=== PATIENT | female | born 1995 | race Two or more races ===

== ENCOUNTER 2020-03-07 07:59 | Inpatient (IN) | payer MEDICAID ==
[~2020-03-07 07:59] MED LIST: Lidocaine 1.5% with EPINEPHrine 1:200,000 5 ML Amp ONE
[2020-03-07] MEDS ORDERED: Nalbuphine 10 MG/ML Syringe IVPUSH PRN (09:26)
[2020-03-07] MEDS ORDERED: Sodium Chloride 0.9% 10 ML Syringe FLUSH PRN (09:26)
[2020-03-07] MEDS ORDERED: Oxytocin/Lactated Ringers 10 UNIT/1,000 ML BAG IV SCH (09:30)
[2020-03-07] MEDS: Lactated Ringers 1,000 ML IV SCH ×3 (12:08→14:54)
[2020-03-07] MEDS ORDERED: fentaNYL 100 MCG/2 ML SDV EPIDUR PRN (12:37)
[2020-03-07] MEDS ORDERED: diphenhydrAMINE 50 MG/ML SDV IVPUSH PRN (12:37)
[2020-03-07] MEDS ORDERED: Bupivacaine/fentaNYL/NS 100 ML Bag EPIDUR PRN (12:37)
[2020-03-07] MEDS ORDERED: ePHEDrine 50 MG/ML SDV IVPUSH PRN (12:37)
--- NOTE | 2020-03-07 12:41 | PCM.LDHP ---
L&D History of Present Illness - General Date of Service: 03/07/20 Admit Problem/Dx: Patient Status Order with Admit Dx/Problem 03/07/20 08:07 Patient Status [ADT] Routine 03/07/20 09:00 Patient Status [ADT] Routine Admission Diagnosis/Problem Admission Diagnosis/Problem Source of Information: Patient History Limitations: Reports: No Limitations - History of Present Illness Introduction:: 24 yo at 37 weeks gestation with EDC 03/28/20 presented in spontaneous labor. She started having contractions about midnight and they have continued and are getting stronger. Membranes intact. Contractions have been about every 5 minutes. On admission, cervix 2-3 cm dilated, 90% effaced and station -2. When I saw her in the clinic yesterday, her cervix was 1 cm, 80% effaced and vertex. Her GBS test is negative. Blood type 0 neg and antibody screen negative. She did receive Rhogam at 28 weeks. Her infectious disease screening has all been negative. 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 She did have a varicella exposure during her and she does not have good varicella antibodies so we did give her IVIG infusion in November 2019 and she never did have any symptoms of chicken pox. Her 1 hour glucola was elevated at 140 but 3 hour GTT was wnl. She plans to breastfeed with her baby. 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: Social & Family History - Family History Family Medical History: Noncontributory - Tobacco Use Smoking Status *Q: Never Smoker Second Hand Smoke Exposure: No - Caffeine Use Caffeine Use: Reports: None - Recreational Drug Use Recreational Drug Use: No - Living Situation & Occupation Living situation: Reports: Single, with Significant Other H&P Review of Systems - Review of Systems: Review Of Systems: See Below General: Reports: No Symptoms HEENT: Reports: No Symptoms Pulmonary: Reports: No Symptoms Cardiovascular: Reports: No Symptoms Gastrointestinal: Reports: No Symptoms Genitourinary: Reports: No Symptoms Musculoskeletal: Reports: No Symptoms Skin: Reports: No Symptoms Psychiatric: Reports: No Symptoms Neurological: Reports: No Symptoms Hematologic/Lymphatic: Reports: No Symptoms Immunologic: Reports: No Symptoms L&D Exam - Exam Exam: See Below - Vital Signs Vital Signs: Last Vital Signs Temp 37.1 C 03/07/20 08:07 Pulse 81 03/07/20 08:07 Resp 16 03/07/20 08:07 BP 127/67 03/07/20 08:07 Pulse Ox 100 03/07/20 08:07 Weight: 86.273 kg - OB Specific Contraction Duration (sec): 60 Contraction Frequency (min): 3 to 6 Contraction Intensity: Moderate to Strong Movement: Active Heart Tones: Present Heart Tones per Min: 125 Heart Rate (FHR) Variability: Moderate (6-25 bmp) Presentation: Vertex Estimated Weight: 6 lb - Nance Score Nance Score Cervix Position: Midposition Nance Score Consistency: Soft Nance Score Effacement: >80% Nance Score Dilation: > 5 cm Nance Score 's Station: -1 ,0 Nance Score Total: 11 - Exam General: Alert, Oriented HEENT: Conjunctiva Clear, Mucosa Moist & [place], Pupils Equal Neck: Supple, Trachea Midline Lungs: Normal Respiratory Effort Cardiovascular: Regular Rate, Regular Rhythm GI/Abdominal Exam: Soft Rectal Exam: Deferred Genitourinary: Normal external exam Back Exam: Normal Inspection, Full Range of Motion Extremities: Normal Inspection, Non-Tender, No Pedal Edema Skin: Warm, Dry, Intact Neurological: Cranial Nerves Intact Psychiatric: Alert, Normal Affect, Normal Mood - Patient Data Lab Results Last 24 hrs: Laboratory Results - last 24 hr 03/07/20 03/07/20 03/07/20 Range/Units 09:40 09:40 09:45 WBC 15.28 H (3.98-10.04) K/mm3 RBC 4.32 (3.98-5.22) M/mm3 Hgb 12.4 (11.2-15.7) gm/dl Hct 37.3 (34.1-44.9) % MCV 86.3 D (79.4-94.8) fl MCH 28.7 (25.6-32.2) pg MCHC 33.2 (32.2-35.5) g/dl RDW Std Deviation 40.5 (36.4-46.3) fL Plt Count 256 (182-369) K/mm3 MPV 10.9 (9.4-12.3) fl Neut % (Auto) 81.4 H (34.0-71.1) % Lymph % (Auto) 10.6 L (19.3-51.7) % [place] % (Auto) 6.0 (4.7-12.5) % Eos % (Auto) 0.8 (0.7-5.8) Baso % (Auto) 0.3 (0.1-1.2) % Neut # (Auto) 12.44 H (1.56-6.13) K/mm3 Lymph # (Auto) 1.62 (1.18-3.74) K/mm3 [place] # (Auto) 0.92 H (0.24-0.36) K/mm3 Eos # (Auto) 0.12 (0.04-0.36) K/mm3 Baso # (Auto) 0.04 (0.01-0.08) K/mm3 COVID-19 (MELISSA) Negative (NEGATIVE) Blood Type O NEGATIVE Gel Antibody Screen Positive Result Diagrams: 03/07/20 09:40 - Problem List (1) 37 weeks gestation of SNOMED Code(s): 30851215 ICD Code: Z3A.37 - 37 WEEKS GESTATION OF Status: Acute Current Visit: Yes (2) Rh negative status during in third trimester SNOMED Code(s): 633076576 ICD Code: O26.893 - OTH RELATED CONDITIONS, THIRD TRIMESTER; Z67.91 - UNSPECIFIED BLOOD TYPE, RH NEGATIVE Status: Acute Current Visit: Yes (3) Spontaneous onset of labor SNOMED Code(s): 37647838 ICD Code: TGW2133 - Status: Acute Current Visit: Yes Problem List Initiated/Reviewed/Updated: Yes Orders Last 24hrs: Active Orders 24 hr Category Date Time Status Patient Status [ADT] Routine ADT 03/07/20 09:00 Active Activity as Tolerated [RC] PFP Care 03/07/20 09:26 Active Communication Order [RC] ASDIRECTED Care 03/07/20 09:26 Active Heart Tones [RC] ASDIRECTED Care 03/07/20 09:27 Active Non Stress Test [RC] PER UNIT ROUTINE Care 03/07/20 08:07 Active Notify Provider [RC] PFP Care 03/07/20 09:26 Active Notify Provider [RC] PRN Care 03/07/20 09:26 Active Peripheral IV Care [RC] . DIRECTED Care 03/07/20 09:27 Active Vital Signs [RC] PER UNIT ROUTINE Care 03/07/20 08:07 Active Regular Diet [DIET] Diet 03/07/20 Lunch Active ANTIBODY IDENTIFICATION [BBK] Stat Lab 03/07/20 09:40 Results RAPID PLASMA REAGIN,RPR [CHEM] Routine Lab 03/07/20 09:40 Received TYPE AND SCREEN [BBK] Stat Lab 03/07/20 09:40 Results Lactated Ringers [Ringers, Lactated] 1,000 ml Med 03/07/20 09:30 Active IV ASDIRECTED Nalbuphine [Nubain] Med 03/07/20 09:26 Active 10 mg IVPUSH Q2H PRN Oxytocin/Lactated Ringers [Pitocin in LR 10 Units/1,000 Med 03/07/20 09:30 Active ML] 10 unit in 1,000 ml IV .CONTINUOUS Sodium Chloride 0.9% [Saline Flush] Med 03/07/20 09:26 Active 10 ml FLUSH ASDIRECTED PRN Electronic Heart Tones Ext w TOCO [WOMSER] Oth 03/07/20 09:26 Ordered Routine Electronic Heart Tones Internal [WOMSER] Per Unit Oth 03/07/20 09:26 Ordered Routine Peripheral IV Insertion Adult [OM.PC] Routine Oth 03/07/20 09:26 Ordered Resuscitation Status Routine Resus Stat 03/07/20 08:07 Ordered Medication Orders Lactated Ringer's (Ringers, Lactated) 1,000 mls @ 100 mls/hr IV ASDIRECTED ELLIOT Last Admin: 03/07/20 12:08 Dose: 100 mls/hr Documented by: CHASIDY Oxytocin/Lactated Ringer's (Pitocin In Lr 10 Units/1,000 Ml) 10 unit in 1,000 mls @ 500 mls/hr IV .CONTINUOUS ELLIOT Nalbuphine HCl (Nubain) 10 mg IVPUSH Q2H PRN PRN Reason: Pain Sodium Chloride (Saline Flush) 10 ml FLUSH ASDIRECTED PRN PRN Reason: Keep Vein Open Assessment/Plan Comment:: 24 year old at 37 weeks gestation today with spontaneous onset of labor about midnight today. She was 2-3 cm dilated at 0900 and now at 1230, cervix is 5 cm dilated with bulging membranes, 90% effaced. She is requesting epidural. monitor is Category I. A: Primip at 37 weeks getting into active labor. GBS negative. Blood type O negative. P: continue expectant management, anticipate vaginal delivery. Epidural now. Patient plans to breastfeed.n
--- NOTE | 2020-03-07 12:48 | PCM.PREANE ---
Preanesthetic Assessment - Procedure Proposed Procedure: Continuous labor epidural - Anesthesia/Transfusion/Family Hx Anesthesia History: No Prior Anesthesia Transfusion History: No Prior Transfusion(s) - Review of Systems General: No Symptoms Pulmonary: No Symptoms Cardiovascular: No Symptoms Gastrointestinal: No Symptoms Neurological: No Symptoms Other: Reports: None - Physical Assessment Vital Signs: Last Vital Signs Temp 98.7 F 03/07/20 08:07 Pulse 81 03/07/20 08:07 Resp 16 03/07/20 08:07 BP 127/67 03/07/20 08:07 Pulse Ox 100 03/07/20 08:07 Height: 1.7 m Weight: 86.273 kg ASA Class: 2 Mental Status: Alert & Oriented x3 Airway Class: Mallampati = 2 Dentition: Reports: Normal Dentition Thyro-Mental Finger Breadths: 3 Mouth Opening Finger Breadths: 3 ROM/Head Extension: Full Lungs: Clear to Auscultation, Normal Respiratory Effort Cardiovascular: Regular Rate, Regular Rhythm - Lab Values: Laboratory Last Values WBC 15.28 K/mm3 (3.98-10.04) H 03/07/20 09:40 RBC 4.32 M/mm3 (3.98-5.22) 03/07/20 09:40 Hgb 12.4 gm/dl (11.2-15.7) 03/07/20 09:40 Hct 37.3 % (34.1-44.9) 03/07/20 09:40 MCV 86.3 fl (79.4-94.8) D 03/07/20 09:40 MCH 28.7 pg (25.6-32.2) 03/07/20 09:40 MCHC 33.2 g/dl (32.2-35.5) 03/07/20 09:40 RDW Std Deviation 40.5 fL (36.4-46.3) 03/07/20 09:40 Plt Count 256 K/mm3 (182-369) 03/07/20 09:40 MPV 10.9 fl (9.4-12.3) 03/07/20 09:40 Neut % (Auto) 81.4 % (34.0-71.1) H 03/07/20 09:40 Lymph % (Auto) 10.6 % (19.3-51.7) L 03/07/20 09:40 [place] % (Auto) 6.0 % (4.7-12.5) 03/07/20 09:40 Eos % (Auto) 0.8 (0.7-5.8) 03/07/20 09:40 Baso % (Auto) 0.3 % (0.1-1.2) 03/07/20 09:40 Neut # (Auto) 12.44 K/mm3 (1.56-6.13) H 03/07/20 09:40 Lymph # (Auto) 1.62 K/mm3 (1.18-3.74) 03/07/20 09:40 [place] # (Auto) 0.92 K/mm3 (0.24-0.36) H 03/07/20 09:40 Eos # (Auto) 0.12 K/mm3 (0.04-0.36) 03/07/20 09:40 Baso # (Auto) 0.04 K/mm3 (0.01-0.08) 03/07/20 09:40 COVID-19 (MELISSA) Negative (NEGATIVE) 03/07/20 09:45 Blood Type O NEGATIVE 03/07/20 09:40 Gel Antibody Screen Positive 03/07/20 09:40 - Allergies Allergies/Adverse Reactions: Allergies Allergy/AdvReac Type Severity Reaction Status Date / Time No Known Allergies Allergy Verified 02/28/20 11:35 - Acknowledgements Anesthesia Type Planned: Epidural Pt an Appropriate Candidate for the Planned Anesthesia: Yes Alternatives and Risks of Anesthesia Discussed w Pt/Guardian: Yes Pt/Guardian Understands and Agrees with Anesthesia Plan: Yes PreAnesthesia Questionnaire - Past Health History Medical/Surgical History: Denies Medical/Surgical History 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: - SUBSTANCE USE Smoking Status *Q: Never Smoker Second Hand Smoke Exposure: No Recreational Drug Use History: No - HOME MEDS Home Medications: Home Meds Prenat 115/Iron Fum/Folic/Dss [ 19 Tablet] 1 each PO DAILY 01/28/20 [History] - CURRENT (IN HOUSE) MEDS Current Meds: Current Medications Diphenhydramine HCl (Benadryl) 25 mg IVPUSH Q6H PRN PRN Reason: pruritis Ephedrine Sulfate (Ephedrine Sulfate) 5 mg IVPUSH ASDIRECTED PRN PRN Reason: Hypotension Fentanyl (Sublimaze) 100 mcg EPIDUR Q3H PRN PRN Reason: Pain Fentanyl/Bupivacaine HCl (Fentanyl/Bupivacaine/Ns 2 Mcg-0.125% 100 Ml) 100 ml EPIDUR ASDIRECTED PRN PRN Reason: Pain Lactated Ringer's (Ringers, Lactated) 1,000 mls @ 100 mls/hr IV ASDIRECTED ELLIOT Last Admin: 03/07/20 12:08 Dose: 100 mls/hr Documented by: Oxytocin/Lactated Ringer's (Pitocin In Lr 10 Units/1,000 Ml) 10 unit in 1,000 mls @ 500 mls/hr IV .CONTINUOUS ELLIOT Nalbuphine HCl (Nubain) 10 mg IVPUSH Q2H PRN PRN Reason: Pain Sodium Chloride (Saline Flush) 10 ml FLUSH ASDIRECTED PRN PRN Reason: Keep Vein Open
--- NOTE | 2020-03-07 14:56 | PCM.PNLD ---
Labor Progress Note - VS & Meds Vital Signs: Last Vital Signs Temp 37.1 C 03/07/20 08:07 Pulse 81 03/07/20 08:07 Resp 16 03/07/20 08:07 BP 127/67 03/07/20 08:07 Pulse Ox 100 03/07/20 08:07 Active Medications: Current Medications Diphenhydramine HCl (Benadryl) 25 mg IVPUSH Q6H PRN PRN Reason: pruritis Ephedrine Sulfate (Ephedrine Sulfate) 5 mg IVPUSH ASDIRECTED PRN PRN Reason: Hypotension Fentanyl (Sublimaze) 100 mcg EPIDUR Q3H PRN PRN Reason: Pain Last Admin: 03/07/20 13:05 Dose: 100 mcg Documented by: Fentanyl/Bupivacaine HCl (Fentanyl/Bupivacaine/Ns 2 Mcg-0.125% 100 Ml) 100 ml EPIDUR ASDIRECTED PRN PRN Reason: Pain Last Admin: 03/07/20 13:04 Dose: 100 ml Documented by: Lactated Ringer's (Ringers, Lactated) 1,000 mls @ 100 mls/hr IV ASDIRECTED ELLIOT Last Admin: 03/07/20 13:03 Dose: 100 mls/hr Documented by: Oxytocin/Lactated Ringer's (Pitocin In Lr 10 Units/1,000 Ml) 10 unit in 1,000 mls @ 500 mls/hr IV .CONTINUOUS ELLIOT Nalbuphine HCl (Nubain) 10 mg IVPUSH Q2H PRN PRN Reason: Pain Sodium Chloride (Saline Flush) 10 ml FLUSH ASDIRECTED PRN PRN Reason: Keep Vein Open - Uterine Contractions Uterine Monitoring Mode: External [place] Contraction Frequency (min): 3 to 6 Contraction Duration (sec): 60 Contraction Intensity: Strong Uterine Resting Tone: Soft - Monitoring Monitor Mode: External Ultrasound Heart Rate (FHR) Baseline: 135 Heart Rate (FHR) Variability: Moderate (6-25 bmp) Accelerations: Present, 15x15 Decelerations: None Strip Review: Category I - Vaginal Exam Dilation (cm): 5-6 Effacement (Percent): 100 Station: -1 Cervical Position: Anterior Sterile Vaginal Exam Performed By: Shefali Arroyo Vaginal Exam Comment: AROM performed due to bulging membranes. Moderate amount of clear fluid drained. - Labor Progress (Free Text) Labor Progress: Patient had epidural placed and dosed at about 1315 and is comfortable. Fetus tolerated well. She is aware of when she has a contraction by feeling pressure but not pain. AROM performed at 1450 to augment labor and clear fluid drained. A: Getting into active labor P: Expectant management and anticipate vaginal delivery. Plans to breastfeed. Will plan for skin to skin after delivery if able.
[2020-03-07] MEDS ORDERED: Acetaminophen 325 MG Tab PO PRN (19:49)
[2020-03-07] MEDS ORDERED: Docusate Sodium 100 MG Cap PO PRN (19:49)
[2020-03-07] MEDS ORDERED: Famotidine 20 MG Tab PO PRN (19:49)
[2020-03-07] MEDS ORDERED: Simethicone 80 MG Tab.Chew PO PRN (19:49)
[2020-03-07] MEDS ORDERED: Benzocaine/Menthol 20%-0.5% Spray 56 GM Canister TOP PRN (19:49)
[2020-03-07] MEDS ORDERED: Witch Hazel Medicated Pads 40/Jar TOP PRN (19:49)
--- NOTE | 2020-03-07 19:56 | PCM.DEL ---
L & D Note - General Info Date of Service: 03/07/20 Mother's Due Date: 03/28/20 - Delivery Note Labor: Spontaneous, Augmented by ARM Delivery Outcome: Livebirth Delivery Method: Spontaneous Vaginal Delivery-Single Delivery Mode: Spontaneous Presentation: Left Occiput Anterior (SHRUTHI) Nuchal Cord: None Prep: Povidone-Iodine (Betadine Anesthesia Type: Epidural Amniotic Fluid Description: Clear Episiotomy Type: None Laceration: 2nd Degree, Labial (Bilateral labial repaired with 4-0 vicryl) Suture type: Vicryl Suture size: 3-0 Placenta: Intact, Spontaneous Cord: 3 Vessels Estimated Blood Loss: 100 Resuscitation Needed: No : Suctioned, Bulb Syringe, Stimulated, Warmed, [place] Used Provider: Shefali Arroyo Score 1 min: 8 Score 5 min: 9 Delivery Comments (Free Text/Narrative):: 24 yo at 37 weeks gestation with EDC 03/28/20 presented in spontaneous labor. She started having contractions about midnight and they have continued and were getting stronger. Membranes intact. Contractions have been about every 5 minutes. On admission, cervix 2-3 cm dilated, 90% effaced and station - 2. When I saw her in the clinic yesterday, her cervix was 1 cm, 80% effaced and vertex. Her GBS test is negative. Blood type 0 neg and antibody screen negative. She did receive Rhogam at 28 weeks. Her infectious disease screening has all been negative. 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 She did have a varicella exposure during her and she does not have good varicella antibodies so we did give her IVIG infusion in November 2019 and she never did have any symptoms of chicken pox. Her 1 hour glucola was elevated at 140 but 3 hour GTT was wnl. She plans to breastfeed with her baby. She had an epidural placed and dosed at 1315 and then I performed AROM to augment labor at about 1440. She did well and baby tolerated first stage of labor. She was completely dilated at about 1815 and we had her start pushing about 1830. She did well with her pushing. Baby tolerated second stage other than deceleration to 80 after pushing a couple of times, but then once she came down further, those stopped. Head delivered from OA and then restituted to SHRUTHI. No nuchal cord. Shoulders and rest of the baby delivered without difficulty. We had a baby girl. Time of delivery was 1857. She cried at the perineum, mouth and nose were suctioned with bulb suction and then she was placed on mother's abdomen, dried and stimulated. Once the cord stopped pulsating, it was clamped and cut. Apgars 8 and 9 at 1 and 5 minutes respectively. She was taken to the warmer for further drying and stimulation. DeLee suction performed since she was having some gagging and 6 ml of blood tinged fluid removed. weight 7 lb 2 oz (3230 gm). There were 3 vessels in the cord. The placenta delivered spontaneously at 1904. It was intact. Pitocin IV bolus was started after delivery of the baby. EBL 100 ml. There was a second degree laceration that was repaired in the usual manner with 3-0 vicryl. There were also inner labial tears bilaterally that were repaired with 4-0 vicryl. The right laceration was reapproximated with 3 simple interrupted sutures and the left side was repaired with a running subcuticular stitch. Fundus was firm and a few small blood clots were expressed. Both Mom and baby were left in the delivery room in stable condition. Baby had latched to the breast and was nursing by 1930. - General Info Date of Service: 03/07/20 Admission Dx/Problem (Free Text): Patient Status Order with Admit Dx/Problem 03/07/20 08:07 Patient Status [ADT] Routine 03/07/20 09:00 Patient Status [ADT] Routine Admission Diagnosis/Problem Admission Diagnosis/Problem Functional Status: Reports: Pain Controlled - Review of Systems General: Reports: No Symptoms HEENT: Reports: No Symptoms Pulmonary: Reports: No Symptoms Cardiovascular: Reports: No Symptoms Gastrointestinal: Reports: No Symptoms Genitourinary: Reports: No Symptoms Musculoskeletal: Reports: No Symptoms Skin: Reports: No Symptoms Neurological: Reports: No Symptoms Psychiatric: Reports: No Symptoms - Patient Data Vitals - Most Recent: Last Vital Signs Temp 37.1 C 03/07/20 08:07 Pulse 81 03/07/20 08:07 Resp 16 03/07/20 08:07 BP 127/67 03/07/20 08:07 Pulse Ox 100 03/07/20 08:07 Weight - Most Recent: 86.273 kg I&O - Last 24 Hours: Intake & Output 03/07/20 03/07/20 03/07/20 06:59 14:59 22:59 Intake Total 3000 Balance 3000 Lab Results Last 24 Hours: Laboratory Results - last 24 hr 03/07/20 03/07/20 03/07/20 Range/Units 09:40 09:40 09:45 WBC 15.28 H (3.98-10.04) K/mm3 RBC 4.32 (3.98-5.22) M/mm3 Hgb 12.4 (11.2-15.7) gm/dl Hct 37.3 (34.1-44.9) % MCV 86.3 D (79.4-94.8) fl MCH 28.7 (25.6-32.2) pg MCHC 33.2 (32.2-35.5) g/dl RDW Std Deviation 40.5 (36.4-46.3) fL Plt Count 256 (182-369) K/mm3 MPV 10.9 (9.4-12.3) fl Neut % (Auto) 81.4 H (34.0-71.1) % Lymph % (Auto) 10.6 L (19.3-51.7) % [place] % (Auto) 6.0 (4.7-12.5) % Eos % (Auto) 0.8 (0.7-5.8) Baso % (Auto) 0.3 (0.1-1.2) % Neut # (Auto) 12.44 H (1.56-6.13) K/mm3 Lymph # (Auto) 1.62 (1.18-3.74) K/mm3 [place] # (Auto) 0.92 H (0.24-0.36) K/mm3 Eos # (Auto) 0.12 (0.04-0.36) K/mm3 Baso # (Auto) 0.04 (0.01-0.08) K/mm3 COVID-19 (MELISSA) Negative (NEGATIVE) Blood Type O NEGATIVE Gel Antibody Screen Positive Med Orders - Current: Current Medications Diphenhydramine HCl (Benadryl) 25 mg IVPUSH Q6H PRN PRN Reason: pruritis Ephedrine Sulfate (Ephedrine Sulfate) 5 mg IVPUSH ASDIRECTED PRN PRN Reason: Hypotension Fentanyl (Sublimaze) 100 mcg EPIDUR Q3H PRN PRN Reason: Pain Last Admin: 03/07/20 13:05 Dose: 100 mcg Documented by: Fentanyl/Bupivacaine HCl (Fentanyl/Bupivacaine/Ns 2 Mcg-0.125% 100 Ml) 100 ml EPIDUR ASDIRECTED PRN PRN Reason: Pain Last Admin: 03/07/20 13:04 Dose: 100 ml Documented by: Lactated Ringer's (Ringers, Lactated) 1,000 mls @ 100 mls/hr IV ASDIRECTED ELLIOT Last Admin: 03/07/20 14:54 Dose: 999 mls/hr Documented by: Oxytocin/Lactated Ringer's (Pitocin In Lr 10 Units/1,000 Ml) 10 unit in 1,000 mls @ 500 mls/hr IV .CONTINUOUS ELLIOT Last Admin: 03/07/20 18:58 Dose: 500 mls/hr Documented by: Nalbuphine HCl (Nubain) 10 mg IVPUSH Q2H PRN PRN Reason: Pain Sodium Chloride (Saline Flush) 10 ml FLUSH ASDIRECTED PRN PRN Reason: Keep Vein Open - Exam General: Alert, Oriented, Cooperative, No Acute Distress HEENT: Mucous Membr. Moist/[place] Neck: Supple Lungs: Normal Respiratory Effort Cardiovascular: Regular Rhythm GI/Abdominal Exam: Normal Bowel Sounds (Female) Exam: Vaginal Bleeding, Vaginal Tears Back Exam: Normal Inspection, Full Range of Motion Extremities: Normal Inspection Skin: Warm, Dry, Intact Neurological: No New Focal Deficit Psy/Mental Status: Alert, Normal Affect, Normal Mood - Problem List & Annotations (1) 37 weeks gestation of SNOMED Code(s): 11776546 Code(s): Z3A.37 - 37 WEEKS GESTATION OF Status: Acute Current Visit: Yes (2) Rh negative status during in third trimester SNOMED Code(s): 056534323 Code(s): O26.893 - OTH RELATED CONDITIONS, THIRD TRIMESTER; Z67.91 - UNSPECIFIED BLOOD TYPE, RH NEGATIVE Status: Acute Current Visit: Yes (3) Spontaneous onset of labor SNOMED Code(s): 54687469 Code(s): XUU3429 - Status: Acute Current Visit: Yes (4) Normal spontaneous vaginal delivery SNOMED Code(s): 03658090, 275994456 Code(s): O80 - ENCOUNTER FOR FULL-TERM UNCOMPLICATED DELIVERY Status: Acute Current Visit: Yes (5) Breast feeding status of mother SNOMED Code(s): 530169582 Code(s): Z39.1 - ENCOUNTER FOR CARE AND EXAMINATION OF LACTATING MOTHER Status: Acute Current Visit: Yes - Problem List Review Problem List Initiated/Reviewed/Updated: Yes - My Orders Last 24 Hours: My Active Orders 03/07/20 08:07 Non Stress Test [RC] PER UNIT ROUTINE Vital Signs [RC] PER UNIT ROUTINE Resuscitation Status Routine 03/07/20 09:00 Patient Status [ADT] Routine 03/07/20 09:26 Activity as Tolerated [RC] PFP Communication Order [RC] ASDIRECTED Notify Provider [RC] PFP Notify Provider [RC] PRN Nalbuphine [Nubain] 10 mg IVPUSH Q2H PRN Sodium Chloride 0.9% [Saline Flush] 10 ml FLUSH ASDIRECTED PRN Electronic Heart Tones Ext w TOCO [WOMSER] Routine Electronic Heart Tones Internal [WOMSER] Per Unit Routine Peripheral IV Insertion Adult [OM.PC] Routine 03/07/20 09:27 Heart Tones [RC] ASDIRECTED Peripheral IV Care [RC] . DIRECTED 03/07/20 09:30 Lactated Ringers [Ringers, Lactated] 1,000 ml IV ASDIRECTED Oxytocin/Lactated Ringers [Pitocin in LR 10 Units/1,000 ML] 10 unit in 1,000 ml IV .CONTINUOUS 03/07/20 09:40 ANTIBODY IDENTIFICATION [BBK] Stat RAPID PLASMA REAGIN,RPR [CHEM] Routine TYPE AND SCREEN [BBK] Stat 03/07/20 Lunch Regular Diet [DIET] 03/07/20 19:40 Patient Status Manage Transfer [TRANSFER] Routine - Assessment Assessment:: G1 now P1 female with after spontaneous labor. GBS negative. Blood type O neg. She plans to breastfeed. - Plan Plan:: 1 Routine care 2. education and support. Encourage skin to skin with baby and feed on demand. 3. Rhogam if indicated.
[2020-03-07] MEDS: Ibuprofen 800 MG Tab PO PRN (21:22)
[2020-03-08] MEDS: Ibuprofen 800 MG Tab PO PRN ×2 (09:46→19:24)
--- NOTE | 2020-03-08 12:03 | PCM48HPAN ---
Post Anesthesia Note - EVALUATION WITHIN 48HRS OF ANESTHETIC Vital Signs in Normal Range: Yes Patient Participated in Evaluation: Yes Respiratory Function Stable: Yes Airway Patent: Yes Cardiovascular Function Stable: Yes Hydration Status Stable: Yes Pain Control Satisfactory: Yes Nausea and Vomiting Control Satisfactory: Yes Mental Status Recovered: Yes Vital Signs: Last Vital Signs Temp 97.5 F 03/08/20 09:38 Pulse 83 03/08/20 09:38 Resp 18 03/08/20 09:38 BP 117/64 03/08/20 09:38 Pulse Ox 100 03/08/20 09:38 - COMMENTS/OBSERVATIONS Free Text/Narrative:: Patient is on her day 1. Stated understanding about possible backaches following epidural anesthesia. Mentions having no back soreness at this time. Explanation given about importance of avoiding back straining. Denies any headache or lightheadedness at this time. Comfortable now. Ambulating, no difficulty urinating.
--- NOTE | 2020-03-08 20:53 | PCM.DCSUM1 ---
Discharge Summary - Hospital Course Free Text/Narrative:: 24 yo at 37 weeks gestation with EDC 03/28/20 presented in spontaneous labor on 03/07/20. She started having contractions about midnight and they continued and were getting stronger. Membranes intact. Contractions were about every 5 minutes. On admission, cervix 2-3 cm dilated, 90% effaced and station -2. When I saw her in the clinic yesterday, her cervix was 1 cm, 80% effaced and vertex. Her GBS test is negative. Blood type 0 neg and antibody screen negative. She did receive Rhogam at 28 weeks. Her infectious disease screening has all been negative. 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 She did have a varicella exposure during her and she does not have good varicella antibodies so we did give her IVIG infusion in November 2019 and she never did have any symptoms of chicken pox. Her 1 hour glucola was elevated at 140 but 3 hour GTT was wnl. She plans to breastfeed with her baby. She had an epidural placed and dosed at 1315 and then I performed AROM to augment labor at about 1440. She did well and baby tolerated first stage of labor. She was completely dilated at about 1815 and we had her start pushing about 1830. She did well with her pushing. Baby tolerated second stage other than deceleration to 80 after pushing a couple of times, but then once she came down further, those stopped. Head delivered from OA and then restituted to SHRUTHI. No nuchal cord. Shoulders and rest of the baby delivered without difficulty. We had a baby girl. Time of delivery was 185. She cried at the perineum, mouth and nose were suctioned with bulb suction and then she was placed on mother's abdomen, dried and stimulated. Once the cord stopped pulsating, it was clamped and cut. Apgars 8 and 9 at 1 and 5 minutes respectively. She was taken to the warmer for further drying and stimulation. DeLee suction performed since she was having some gagging and 6 ml of blood tinged fluid removed. weight 7 lb 2 oz (3230 gm). There were 3 vessels in the cord. The placenta delivered spontaneously at 1904. It was intact. Pitocin IV bolus was started after delivery of the baby. EBL 100 ml. There was a second degree laceration that was repaired in the usual manner with 3-0 vicryl. There were also inner labial tears bilaterally that were repaired with 4-0 vicryl. The right laceration was reapproximated with 3 simple interrupted sutures and the left side was repaired with a running subcuticular stitch. Fundus was firm and a few small blood clots were expressed. Both Mom and baby were left in the delivery room in stable condition. Baby had latched to the breast and was nursing by 1930. She has done well with and denies nipple pain. Her bleeding has been moderate, no clots and only mild cramping. She denies back pain or headaches. She is bonding well with her baby. Diagnosis: Stroke: No Modified [place] Scale: No Symptoms at All Modified [place] Scale Score: 0 - Discharge Data Discharge Date: 03/08/20 Discharge Disposition: Home, Self-Care 01 Condition: Good - Referral to Home Health Primary Care Physician: Shefali Arroyo MD - Discharge Diagnosis/Problem(s) (1) 37 weeks gestation of SNOMED Code(s): 51385998 ICD Code: Z3A.37 - 37 WEEKS GESTATION OF Status: Acute Current Visit: Yes (2) Rh negative status during in third trimester SNOMED Code(s): 221618669 ICD Code: O26.893 - OTH RELATED CONDITIONS, THIRD TRIMESTER; Z67.91 - UNSPECIFIED BLOOD TYPE, RH NEGATIVE Status: Acute Current Visit: Yes (3) Spontaneous onset of labor SNOMED Code(s): 53660975 ICD Code: [id number] - Status: Acute Current Visit: Yes (4) Normal spontaneous vaginal delivery SNOMED Code(s): 05898158, 862577061 ICD Code: O80 - ENCOUNTER FOR FULL-TERM UNCOMPLICATED DELIVERY Status: Acute Current Visit: Yes (5) Breast feeding status of mother SNOMED Code(s): 690027503 ICD Code: Z39.1 - ENCOUNTER FOR CARE AND EXAMINATION OF LACTATING MOTHER Status: Acute Current Visit: Yes - Patient Instructions Diet: Regular Diet as Tolerated, Drink 8-10+ Glasses/Day Activity: As Tolerated Activity, Other: No intercourse for 6 weeks Driving: May Drive Today Showering/Bathing: May Shower Notify Provider of: Fever, Increased Pain, Swelling and Redness, Drainage, Nausea and/or Vomiting - Discharge Plan *PRESCRIPTION DRUG MONITORING PROGRAM REVIEWED*: Not Applicable *COPY OF PRESCRIPTION DRUG MONITORING REPORT IN PATIENT PINEDA: Not Applicable Home Medications: Home Meds Prenat 115/Iron Fum/Folic/Dss [ 19 Tablet] 1 each PO DAILY 01/28/20 [History] Acetaminophen [Tylenol] 650 mg PO Q4H PRN tablet 03/08/20 [Rx] Benzocaine/Menthol [Dermoplast Pain Relief [place]] 1 applic TOP ASDIRECTED PRN canister 03/08/20 [Rx] Docusate Sodium [Colace] 100 mg PO BID PRN cap 03/08/20 [Rx] Ibuprofen [Motrin] 800 mg PO Q6H PRN tablet 03/08/20 [Rx] witdonnie Madonna [Tucks] 1 pad TOP ASDIRECTED PRN pad 03/08/20 [Rx] Oxygen Therapy Mode: Room Air Patient Handouts: , and Inducing , Rooming- In With Your [place], Exclusive , Breast Pumping Tips, and Medicine Use, and Mastitis, and Self-Care, Breast Engorgement, SIDS Prevention Information, [id number], Tips for a Good Latch, and Cracked or Sore Nipples, Storing Breast Milk - Discharge Summary/Plan Comment DC Time >30 min.: No Discharge Summary/Plan Comment: 24 year old G1 now P1 at 37 weeks delivered by after onset of spontaneous labor. We augmented with AROM. GBS negative. She had second degree perineal laceration and bilateral inner labial tears, all repaired. She is blood type O neg and baby was O neg as well so Rhogam was not given. She has been well and denies nipple pain. Bleeding is moderate, no clots. Pain controlled with tylenol and ibuprofen. Bonding well with baby. A: Normal spontaneous vaginal delivery at 37 weeks with spontaneous labor. Second degree Perineal laceration. Breast feeding. RH negative, baby RH negative, so Rhogam not indicated. Tdap given antepartum. P: Routine instructions Breastfeed on demand, be diligent for proper latch. Follow up in 6 weeks for visit. - General Info Date of Service: 03/08/20 Admission Dx/Problem (Free Text: Patient Status Order with Admit Dx/Problem 03/07/20 08:07 Patient Status [ADT] Routine 03/07/20 09:00 Patient Status [ADT] Routine Admission Diagnosis/Problem Admission Diagnosis/Problem Functional Status: Reports: Pain Controlled, Tolerating Diet, Ambulating, Urinating - Review of Systems General: Reports: No Symptoms HEENT: Reports: No Symptoms Pulmonary: Reports: No Symptoms Cardiovascular: Reports: No Symptoms Gastrointestinal: Reports: No Symptoms Genitourinary: Reports: No Symptoms Musculoskeletal: Reports: No Symptoms Skin: Reports: No Symptoms Neurological: Reports: No Symptoms Psychiatric: Reports: No Symptoms - Patient Data Vitals - Most Recent: Last Vital Signs Temp 36.1 C 03/08/20 15:13 Pulse 74 03/08/20 15:13 Resp 16 03/08/20 15:13 BP 113/69 03/08/20 15:13 Pulse Ox 100 03/08/20 15:13 Weight - Most Recent: 86.273 kg I&O - Last 24 hours: Intake & Output 03/08/20 03/08/20 03/08/20 06:59 14:59 22:59 Intake Total 1000 Balance 1000 Lab Results - Last 24 hrs: Laboratory Results - last 24 hr 03/07/20 03/08/20 Range/Units 09:40 06:15 WBC 14.74 H (3.98-10.04) K/mm3 RBC 3.77 L (3.98-5.22) M/mm3 Hgb 10.6 L D (11.2-15.7) gm/dl Hct 32.8 L (34.1-44.9) % MCV 87.0 (79.4-94.8) fl MCH 28.1 (25.6-32.2) pg MCHC 32.3 (32.2-35.5) g/dl RDW Std Deviation 41.0 (36.4-46.3) fL Plt Count 236 (182-369) K/mm3 MPV 10.8 (9.4-12.3) fl RPR Non-reactive (NONREACTIVE) Med Orders - Current: Current Medications Acetaminophen (Tylenol) 650 mg PO Q4H PRN PRN Reason: mild pain or fever Last Admin: 03/08/20 15:14 Dose: 650 mg Documented by: Benzocaine/Menthol (Dermoplast Pain Relief [place]) 0 gm TOP ASDIRECTED PRN PRN Reason: Perineal Comfort Measure Last Admin: 03/07/20 21:21 Dose: 1 applic Documented by: Docusate Sodium (Colace) 100 mg PO BID PRN PRN Reason: Constipation Last Admin: 03/07/20 21:21 Dose: 100 mg Documented by: Famotidine (Pepcid) 20 mg PO BID PRN PRN Reason: Heartburn Ibuprofen (Motrin) 800 mg PO Q6H PRN PRN Reason: Mild pain or fever Last Admin: 03/08/20 19:24 Dose: 800 mg Documented by: Simethicone (Simethicone) 80 mg PO Q4H PRN PRN Reason: Gas Witch Madonna (Tucks) 1 pad TOP ASDIRECTED PRN PRN Reason: Perineal Comfort Measure Last Admin: 03/07/20 21:22 Dose: 1 canister Documented by: Discontinued Medications Diphenhydramine HCl (Benadryl) 25 mg IVPUSH Q6H PRN PRN Reason: pruritis Ephedrine Sulfate (Ephedrine Sulfate) 5 mg IVPUSH ASDIRECTED PRN PRN Reason: Hypotension Fentanyl (Sublimaze) 100 mcg EPIDUR Q3H PRN PRN Reason: Pain Last Admin: 03/07/20 13:05 Dose: 100 mcg Documented by: Fentanyl/Bupivacaine HCl (Fentanyl/Bupivacaine/Ns 2 Mcg-0.125% 100 Ml) 100 ml EPIDUR ASDIRECTED PRN PRN Reason: Pain Last Admin: 03/07/20 13:04 Dose: 100 ml Documented by: Lactated Ringer's (Ringers, Lactated) 1,000 mls @ 100 mls/hr IV ASDIRECTED ELLIOT Last Admin: 03/07/20 14:54 Dose: 999 mls/hr Documented by: Oxytocin/Lactated Ringer's (Pitocin In Lr 10 Units/1,000 Ml) 10 unit in 1,000 mls @ 500 mls/hr IV .CONTINUOUS ELLIOT Last Admin: 03/07/20 18:58 Dose: 500 mls/hr Documented by: Nalbuphine HCl (Nubain) 10 mg IVPUSH Q2H PRN PRN Reason: Pain Sodium Chloride (Saline Flush) 10 ml FLUSH ASDIRECTED PRN PRN Reason: Keep Vein Open - Exam General: Reports: Alert, Oriented, No Acute Distress HEENT: Reports: Pupils Equal, Mucous Membr. Moist/[place] Neck: Reports: Supple Lungs: Reports: Normal Respiratory Effort Cardiovascular: Reports: Regular Rate, Regular Rhythm GI/Abdominal Exam: Normal Bowel Sounds, Soft, No Distention (Female) Exam: Enlarged Uterus, Fundal Height (Fundus at umbilicus), Vaginal Bleeding (light flow), Vaginal Tears (Perineal tear well approximated) Rectal (Female) Exam: Deferred Back Exam: Reports: Normal Inspection (No bruising at epidural site and no tenderness to palpation) Extremities: Normal Inspection, No Pedal Edema Skin: Reports: Warm, Dry, Intact Wound/Incisions: Reports: Healing Well Neurological: Reports: No New Focal Deficit Psy/Mental Status: Reports: Alert, Normal Affect, Normal Mood
== END 2020-03-08 22:00 | disposition home or self-care (01) | DRG 807 ==
LOC: JD.OBCHECK 07:59 → JD.OB 07:59 → JD.OBCHECK 09:00 → JD.OB 09:00 → OBSVTOIN 18:57 → JD.OB 18:58
PROVIDERS: ADMIT Family Medicine; ATTEND Family Medicine
PROC: 10E0XZZ Delivery of Products of Conception, External Approach (ICD-10-PCS; principal; 2020-03-07)
PROC: 0KQM0ZZ Repair Perineum Muscle, Open Approach (ICD-10-PCS; 2020-03-07)
PROC: 10907ZC Drainage of Amniotic Fluid, Therapeutic from Products of Conception, Via Natural or Artificial Opening (ICD-10-PCS; 2020-03-07)
PROC: 3E0R3BZ Introduction of Anesthetic Agent into Spinal Canal, Percutaneous Approach (ICD-10-PCS; 2020-03-07)
DX: O70.1 Second degree perineal laceration during delivery (principal); Z37.0 Single live birth; Z3A.37 37 weeks gestation of pregnancy; O76 Abnormality in fetal heart rate and rhythm complicating labor and delivery; Z20.828 Contact with and (suspected) exposure to other viral communicable diseases
CPT/HCPCS: 36415; 51701; 59025; 59409; 85025; 85027; 86592; A9270-GY; J2590; J3010; J7120; U0002